=== PATIENT | male | born 1960 | race Caucasian/White ===

== ENCOUNTER 2016-11-18 08:02 | Observation (INO) | payer BC ==
[~2016-11-18] VITALS: Ht 172.7 cm; Wt 104.0 kg
[2016-11-18] MEDS ORDERED: ASPIRIN 81 MG CHEW PO STA (08:22)
[2016-11-18 08:30] LABS: BASO % 0.1 %; BASO ABS # 0.01 K/uL (0-0.2); COMPLETE YES; EOS % 1.5 %; HEMATOCRIT 47.8 % (42-52); IG% 0.3 %; LYMPH % 38.7 %; LYMPH ABS # 2.93 K/uL (1.2-3.4); MEAN CELL VOLUME 89.2 fL (80-100); MEAN CORPUSCULAR HEMOGLOBIN 30.8 pg (25-34); MEAN CORPUSCULAR HGB CONC 34.5 g/dl (32-36); MEAN PLATELET VOLUME 11.1 fL (7.4-10.4); MONO % 8.3 %; NEUT % 51.1 %; PLATELET COUNT 193 K/uL (130-400); RED BLOOD COUNT 5.36 M/uL (4.7-6.1); WHITE BLOOD COUNT 7.57 K/uL (4.8-10.8)
--- NOTE | 2016-11-18 08:37 | EMERGENCY ROOM VISIT NOTE ---
History Report prepared by Larry: Randee Ha Under the Supervision of: Dr. Neha Majano M.D. First contact with patient: 08:11 Chief Complaint: CHEST PAIN Stated Complaint: CHEST PAIN Nursing Triage Summary: Pt c/o left chest pain intermittently x 1 month This morning it woke me up, my heartbeat stabbed me. SOB intermittently, unsure if it's with the pain. Denies pain with deep breath. Just got over a cold a month ago, took antibiotics. Hx Angina. History of Present Illness The patient is a 56 year old male who presents to the Emergency Room with complaints of intermittent left-sided chest pain that started this morning. He states that the pain is becoming more frequent. The patient states that the pain woke him up this morning and he describes the pain as sharp. He states that he experienced the same chest pain 1 month ago. The patient has not noticed any relationship between the pain and sitting up or lying flat. The patient is also experiencing increased sweating, but he adds that he is normally sweaty at baseline. He is also experiencing intermittent shortness of breath that is worse with exertion. He states that he can't catch his breath and denies any pain with breathing. The patient states that he gets fatigued more quickly whenever he works. He denies nausea or lower extremity edema. The patient is also experiencing dizziness and near syncope with coughing. The patient did not take any aspirin today. The patient adds that he had a chest cold 1 month ago and was on antibiotics for it. The patient states that he has never had a NM. The patient states that he smokes 1 cigarette a day, but used to smoke 3 packs a day. He denies frequent exposure to chemicals. The patient's most recent stress test was last year. Source of History: patient Onset: morning Position: chest (left) Quality: sharp Timing: intermittent, worsening Associated Symptoms: + SOB (intermittent), + fatigue (more quickly when working), No nausea Note: increased sweating, dizziness and near syncope with coughing, no lower extremity edema Review of Systems See HPI for pertinent positives & negatives. A total of 10 systems reviewed and were otherwise negative. Past Medical & Surgical Medical Problems: (1) Chest pain (2) Dyslipidemia (3) GERD (gastroesophageal reflux disease) (4) Hypertension (5) Tobacco use disorder Surgical Problems: (1) Status post lumbar laminectomy Family History Cancer Diabetes mellitus Heart disease Hypertension Lung disease Social History Smoking Status: Current Every Day Smoker (1 cigarette a day) Alcohol Use: none Marital Status: Housing Status: lives with significant other Occupation Status: employed Current/Historical Medications Scheduled Atorvastatin (Atorvastatin Calcium), 40 MG PO HS Bupropion Hcl (Wellbutrin Sr), 150 MG PO BID Levothyroxine Sodium (Synthroid), 150 MCG PO QAM Losartan Potassium & Hydrochlo (Losartan Potassium/Hydroc), 1 TAB PO DAILY Metoprolol Tartrate (Lopressor), 25 MG PO BID Omeprazole (Prilosec), 20 MG PO QAM Allergies Coded Allergies: CT Inhibitors (Verified Adverse Reaction, Mild, DRY COUGH, 11/18/16) DRY COUGH NOT THE ANTIBIOTIC No Known Allergies (Verified , 08/15/11) Physical Exam Vital Signs Date Time Temp Pulse Resp B/P (MAP) Pulse Ox O2 Delivery O2 Flow Rate FiO2 11/18/16 11:09 79 18 179/91 99 Room Air 11/18/16 11:00 99 Room Air 11/18/16 10:44 74 18 181/94 99 Room Air 11/18/16 10:10 72 18 208/109 100 Room Air 11/18/16 10:01 76 18 173/105 97 Room Air 11/18/16 09:38 67 20 166/102 99 Room Air 11/18/16 08:19 85 11/18/16 08:08 78 19 207/111 97 Physical Exam Vital signs reviewed. General: Well-appearing male, in no significant distress. HEENT: No scleral icterus, PERRLA, neck supple. Atraumatic. Cardiovascular: Regular rate and rhythm, no extra sounds. Pulmonary: Clear to auscultation bilaterally, normal work of breathing. Abdomen: Soft, nontender, nondistended, positive bowel sounds. Musculoskeletal: Atraumatic, no peripheral edema. Neurologic: Patient awake alert and oriented x 3, full strength in all 4 extremities. Cranial nerves 2 through 12 grossly intact. Skin: Warm, dry, no rash Medical Decision & Procedures ER Provider Diagnostic Interpretation: Radiology results as stated below per my review and radiologist interpretation: CHEST ONE VIEW PORTABLE FINDINGS: No pneumothorax. No pleural effusions. The heart remains enlarged. No focal lung consolidations to suggest pneumonia. No evidence for pulmonary edema. Stable calcified granuloma within the right midlung zone. IMPRESSION: Stable cardiomegaly. Electronically signed by: Tomer Zhou M.D. 11/18/2016 8:36 AM Dictated Date/Time: 11/18/2016 8:35 AM CHEST CTA for PULMONARY ARTERIES FINDINGS: There is a normal caliber thoracic aorta with no evidence for dissection. There is no evidence for pulmonary embolus. No pleural effusions. No pneumothorax. The liver and spleen are unremarkable. No mediastinal or hilar lymphadenopathy. The central airways are patent. Calcified granuloma within the right middle lobe. A 4 mm nodule within the lingula on image 182. No focal lung consolidations to suggest pneumonia. IMPRESSION: 1. No evidence for pulmonary embolus. 2. An indeterminate 4 mm nodule within the lingula. Please refer to the chart below for recommended follow-up . Please refer to below summary of Fleischner criteria recommendations for follow-up of incidental CT nodules (Destiney Louis, Guidelines for management of small pulmonary nodules detected on CT scans: A statement from the Fleischner Society, Radiology 237: [phone].) SOLID NODULES Solitary nodule size: <6 mm * Low risk patients: no follow-up needed * high risk patients: optional CT at 12 months Solitary nodule size: 6-8 mm * Low risk patients: follow-up at 6-12 months, then consider further follow-up at 18-24 months * high risk patients: initial follow-up CT at 6-12 months and then at 18-24 months if no change Solitary nodule size: >8 mm * either low or high risk patients - consider follow-up CT at 3 months, and/or CT-PET, and/or biopsy Multiple nodules size: <6 mm * Low risk patients: no routine follow-up * high risk patients: optional CT at 12 months Multiple nodules size: 6-8 mm * Low risk patients: follow-up at 3-6 months, then consider further follow-up at 18-24 months * high risk patients: follow-up at 3-6 months, then at 18-24 months if no change Multiple nodules size: >8 mm * Low risk patients: follow-up at 3-6 months, then consider further follow-up at 18-24 months * high risk patients: follow-up at 3-6 months, then at 18-24 months if no change Note: newly detected indeterminate nodule in persons 35 years of age or older. * Low risk patients: minimal or absent history of smoking and/or other known risk factors * high risk patients: history of smoking or of other known risk factors (e.g. first degree relative with lung cancer, or exposure to asbestos, radon, uranium) * if a nodule up to 8 mm is partly solid or is ground glass further follow-up is required after 24 months to exclude possible slow growing adenocarcinoma (NATI) SUBSOLID NODULES Solitary pure ground-glass nodule * nodule size <6 mm - no CT follow-up required * nodule size >=6 mm - follow-up CT at 6-12 months, then every 2 years until 5 years Solitary part-solid nodule * nodule size <6 mm - no CT follow-up required * nodule size >=6 mm - follow-up CT at 3-6 months. If unchanged, and solid component remains <6 mm, then annual follow-up for 5 years Multiple subsolid nodules * nodule size <6 mm - follow-up CT at 3-6 months, consider further follow-up at 2 and 4 years if stable * nodule size >=6 mm - follow-up CT at 3-6 months, subsequent management based on the most suspicious nodule(s) Electronically signed by: Tomer Zhou M.D. 11/18/2016 10:22 AM Dictated Date/Time: 11/18/2016 10:15 AM Laboratory Results 11/18/16 08:00 Red Blood Count 5.36, Mean Corpuscular Volume 89.2, Mean Corpuscular Hemoglobin 30.8, Mean Corpuscular Hemoglobin Concent 34.5, Mean Platelet Volume 11.1, Neutrophils (%) (Auto) 51.1, Lymphocytes (%) (Auto) 38.7, Monocytes (%) (Auto) 8.3, Eosinophils (%) (Auto) 1.5, Basophils (%) (Auto) 0.1, Neutrophils # (Auto) 3.87, Lymphocytes # (Auto) 2.93, Monocytes # (Auto) 0.63, Eosinophils # (Auto) 0.11, Basophils # (Auto) 0.01 11/18/16 08:00 Test 11/18/16 08:00 11/18/16 08:27 White Blood Count 7.57 K/uL (4.8-10.8) Red Blood Count 5.36 M/uL (4.7-6.1) Hemoglobin 16.5 g/dL (14.0-18.0) Hematocrit 47.8 % (42-52) Mean Corpuscular Volume 89.2 fL (80-100) Mean Corpuscular Hemoglobin 30.8 pg (25-34) Mean Corpuscular Hemoglobin Concent 34.5 g/dl (32-36) Platelet Count 193 K/uL (130-400) Mean Platelet Volume 11.1 fL (7.4-10.4) Neutrophils (%) (Auto) 51.1 % Lymphocytes (%) (Auto) 38.7 % Monocytes (%) (Auto) 8.3 % Eosinophils (%) (Auto) 1.5 % Basophils (%) (Auto) 0.1 % Neutrophils # (Auto) 3.87 K/uL (1.4-6.5) Lymphocytes # (Auto) 2.93 K/uL (1.2-3.4) Monocytes # (Auto) 0.63 K/uL (0.11-0.59) Eosinophils # (Auto) 0.11 K/uL (0-0.5) Basophils # (Auto) 0.01 K/uL (0-0.2) RDW Standard Deviation 42.5 fL (36.4-46.3) RDW Coefficient of Variation 13.0 % (11.5-14.5) Immature Granulocyte % (Auto) 0.3 % Immature Granulocyte # (Auto) 0.02 K/uL (0.00-0.02) Anion Gap 7.0 mmol/L (3-11) Est Creatinine Clear Calc Drug Dose 102.0 ml/min Estimated GFR () 100.2 Estimated GFR (Non- 86.4 BUN/Creatinine Ratio 10.6 (10-20) Calcium Level 8.0 mg/dl (8.5-10.1) Total Bilirubin 0.3 mg/dl (0.2-1) Direct Bilirubin < 0.1 mg/dl (0-0.2) Aspartate Amino Transf (AST/SGOT) 20 U/L (15-37) Alanine Aminotransferase (ALT/SGPT) 24 U/L (12-78) Alkaline Phosphatase 89 U/L (45-117) Total Creatine Kinase 64 U/L (39-308) Creatine Kinase MB 1.7 ng/ml (0.5-3.6) Creatine Kinase MB Ratio 2.7 (0-3.0) Total Protein 7.1 gm/dl (6.4-8.2) Albumin 3.5 gm/dl (3.4-5.0) Thyroid Stimulating Hormone (TSH) 4.950 uIu/ml (0.300-4.500) Hepatitis C Antibody Screen NEG (NEG) Bedside D-Dimer > 450 ng/mlFEU (0-450) Bedside Troponin I < 0.030 ng/ml (0-0.045) Laboratory results per my review. Medications Administered Medications (Trade) Dose Ordered Sig/Agnieszka Route Start Time Stop Time Status Last Admin Dose Admin Aspirin (Aspirin Chew) 324 mg NOW STAT PO 11/18/16 08:22 11/18/16 08:24 DC 11/18/16 08:37 324 MG Hydralazine HCl (HydrALAZINE INJ) 10 mg NOW STAT IV. 11/18/16 09:40 11/18/16 09:41 DC 11/18/16 09:45 10 MG Hydralazine HCl (HydrALAZINE INJ) 10 mg NOW STAT IV. 11/18/16 10:13 11/18/16 10:14 DC 11/18/16 10:25 10 MG Nitroglycerin (Nitroglycerin 2% Oint) 1 inch [facility] ONCE .ROUTE 11/18/16 10:14 11/18/16 10:15 DC 11/18/16 10:14 1 INCH ECG Indication: chest pain Rate (beats per minute): 83 Rhythm: normal sinus Findings: no acute ischemic change, no ectopy, other (Possible previous anterior infarct) ED Course 816: Past medical records reviewed. The patient was evaluated in room B12. A complete history and physical examination was performed. 0822: Ordered Aspirin 324 mg PO 0940: Ordered Hydralazine HCl 10 mg IV 1013: Ordered Hydralazine HCl 10 mg IV 1014: Ordered Nitroglycerin 1 inch TOP 1107: Upon reevaluation, the patient is resting comfortably. I discussed laboratory and radiographic results with her. She verbalized agreement of the treatment plan. The patient will be evaluated for further management and care. 1125: I reviewed the patient's case with Dr. Mallory Gustafson. He will evaluate the patient for further management. Medical Decision Differential diagnoses includes acute coronary syndrome, pulmonary embolus, aortic dissection, musculoskeletal pain, pneumonia, pleural effusion, pneumothorax, gastritis, peptic ulcer disease. Medication Reconciliation: I attest that I have personally reviewed the patient' s current medication list. Blood Pressure Screening: Patient was found to have an elevated blood pressure and was referred to their primary doctor for recheck and further treatment. This patient was evaluated and appeared to be in no significant distress. IV access was obtained and laboratory work was drawn. Patient was placed on the systems engineer and found to be in normal sinus rhythm. EKG reveals no evidence of acute ischemia. He was given an aspirin to chew. Patient is noted to be markedly hypertensive. His given several doses of IV hydralazine and nitroglycerin trial. Patient's pain had largely subsided. It did seem to wax and wane in the emergency department. Cardiac enzymes are negative. D-dimer is elevated and a CT scan of the chest was performed which is negative. I did inform the patient and his family of the findings. He will be evaluated by the hospitalist service for admission and further management. Consults Time Called: 1109 Consulting Physician: Dr. Mallory Gustafson Returned Call: 1125 I reviewed the patient's case with Dr. Mallory Gustafson. He will evaluate the patient for further management. Impression Primary Impression: Hypertensive urgency Additional Impression: Left sided chest pain Scribe Attestation The scribe's documentation has been prepared under my direction and personally reviewed by me in its entirety. I confirm that the note above accurately reflects all work, treatment, procedures, and medical decision making performed by me. Departure Information Prescriptions Atorvastatin (Atorvastatin Calcium) 40 Mg Tab 40 MG PO HS, #30 TAB 5 Refills Prov: Nate Tejada M.D. 11/19/16 Metoprolol Tartrate (LOPRESSOR) 25 Mg Tab 25 MG PO BID, #60 TAB 5 Refills Prov: Nate Tejada M.D. 11/19/16 Losartan Potassium & Hydrochlo (LOSARTAN POTASSIUM/HYDROC) 1 Tab Tab 1 TAB PO DAILY, #30 TAB 5 Refills 100 / 12.5 mg tablet Prov: Nate Tejada M.D. 11/19/16 Referrals Keshav Garcia M.D. ([facility]) (PCP) Patient Instructions My [facility] Problem Qualifiers
--- NOTE | 2016-11-18 08:37 | DIAGNOSTIC IMAGING REPORT ---
CHEST ONE VIEW PORTABLE HISTORY: Atypical chest pain COMPARISON: Chest 10/04/2005. FINDINGS: No pneumothorax. No pleural effusions. The heart remains enlarged. No focal lung consolidations to suggest pneumonia. No evidence for pulmonary edema. Stable calcified granuloma within the right midlung zone. IMPRESSION: Stable cardiomegaly. Electronically signed by: Tomer Zhou M.D. 11/18/2016 8:36 AM Dictated Date/Time: 11/18/2016 8:35 AM
[2016-11-18] MEDS ORDERED: PRLSR20 PO (08:40)
[2016-11-18] MEDS ORDERED: HYZ/50125 PO (08:40)
[2016-11-18] MEDS ORDERED: ATOR-22 PO (08:40)
[2016-11-18] MEDS ORDERED: SYN150 PO (08:40)
[2016-11-18 08:46] LABS: POINT OF CARE TROPONIN I < 0.030 ng/ml (0-0.045)
[2016-11-18 08:47] LABS: ALT/SGPT 24 U/L (12-78); BLOOD UREA NITROGEN 10 mg/dl (7-18); BUN/CREATININE RATIO 10.6 (10-20); CARBON DIOXIDE 24 mmol/L (21-32); CHLORIDE 109 mmol/L (98-107); CREATININE 0.98 mg/dl (0.60-1.40); GLUCOSE 112 mg/dl (70-99); POTASSIUM 4.2 mmol/L (3.5-5.1); SODIUM 140 mmol/L (136-145)
[2016-11-18 08:58] LABS: ALKALINE PHOSPHATASE 89 U/L (45-117); AST/SGOT 20 U/L (15-37); CKMB/CK RATIO 2.7 (0-3.0)
[2016-11-18] MEDS ORDERED: OPTIRAY 320 IV PRN (09:15)
[2016-11-18] MEDS ORDERED: HydrALAZINE HCL 20 MG/ML VIAL IV. STA ×2 (09:40→10:13)
[2016-11-18] MEDS ORDERED: NITROGLYCERIN OINT 2% 1GM PACKET ONE (10:14)
[2016-11-18] MEDS ORDERED: NITROGLYCERIN OINT 2% 1GM PACKET EXT ONE (10:15)
--- NOTE | 2016-11-18 10:24 | DIAGNOSTIC IMAGING REPORT ---
CHEST CTA for PULMONARY ARTERIES CT DOSE: 616.07 mGy.cm HISTORY: Atypical chest pain. TECHNIQUE: Multiaxial CT images of the chest were performed following the intravenous administration of contrast to evaluate the pulmonary arteries. Maximal intensity projection images were also obtained. COMPARISON STUDY: None. FINDINGS: There is a normal caliber thoracic aorta with no evidence for dissection. There is no evidence for pulmonary embolus. No pleural effusions. No pneumothorax. The liver and spleen are unremarkable. No mediastinal or hilar lymphadenopathy. The central airways are patent. Calcified granuloma within the right middle lobe. A 4 mm nodule within the lingula on image 182. No focal lung consolidations to suggest pneumonia. IMPRESSION: 1. No evidence for pulmonary embolus. 2. An indeterminate 4 mm nodule within the lingula. Please refer to the chart below for recommended follow-up . Please refer to below summary of Fleischner criteria recommendations for follow-up of incidental CT nodules (Destiney Louis, Guidelines for management of small pulmonary nodules detected on CT scans: A statement from the Fleischner Society, Radiology 237: [phone].) SOLID NODULES Solitary nodule size: <6 mm * Low risk patients: no follow-up needed * high risk patients: optional CT at 12 months Solitary nodule size: 6-8 mm * Low risk patients: follow-up at 6-12 months, then consider further follow-up at 18-24 months * high risk patients: initial follow-up CT at 6-12 months and then at 18-24 months if no change Solitary nodule size: >8 mm * either low or high risk patients - consider follow-up CT at 3 months, and/or CT-PET, and/or biopsy Multiple nodules size: <6 mm * Low risk patients: no routine follow-up * high risk patients: optional CT at 12 months Multiple nodules size: 6-8 mm * Low risk patients: follow-up at 3-6 months, then consider further follow-up at 18-24 months * high risk patients: follow-up at 3-6 months, then at 18-24 months if no change Multiple nodules size: >8 mm * Low risk patients: follow-up at 3-6 months, then consider further follow-up at 18-24 months * high risk patients: follow-up at 3-6 months, then at 18-24 months if no change Note: newly detected indeterminate nodule in persons 35 years of age or older. * Low risk patients: minimal or absent history of smoking and/or other known risk factors * high risk patients: history of smoking or of other known risk factors (e.g. first degree relative with lung cancer, or exposure to asbestos, radon, uranium) * if a nodule up to 8 mm is partly solid or is ground glass further follow-up is required after 24 months to exclude possible slow growing adenocarcinoma (NATI) SUBSOLID NODULES Solitary pure ground-glass nodule * nodule size <6 mm - no CT follow-up required * nodule size >=6 mm - follow-up CT at 6-12 months, then every 2 years until 5 years Solitary part-solid nodule * nodule size <6 mm - no CT follow-up required * nodule size >=6 mm - follow-up CT at 3-6 months. If unchanged, and solid component remains <6 mm, then annual follow-up for 5 years Multiple subsolid nodules * nodule size <6 mm - follow-up CT at 3-6 months, consider further follow-up at 2 and 4 years if stable * nodule size >=6 mm - follow-up CT at 3-6 months, subsequent management based on the most suspicious nodule(s) Electronically signed by: Tomer Zhou M.D. 11/18/2016 10:22 AM Dictated Date/Time: 11/18/2016 10:15 AM
[2016-11-18 11:00] VITALS: O2SAT 99; Ht 172.7 cm; Wt 104.0 kg
[2016-11-18] MEDS ORDERED: ONDANSETRON INJ 2 MG/ML 2 ML VIAL IV PRN (11:45)
[2016-11-18] MEDS ORDERED: NITROGLYCERIN 0.4 MG SL PER TAB CHARGE SL PRN (11:45)
[2016-11-18] MEDS ORDERED: MoRPHine SULFATE 2 MG/ML CARP IV PRN (11:45)
[2016-11-18] MEDS ORDERED: ACETAMINOPHEN 325 MG TAB PO PRN (11:45)
[2016-11-18 12:11] VITALS: O2SAT 97
[2016-11-18] MEDS ORDERED: BUPR150T7 PO (12:49)
--- NOTE | 2016-11-18 12:54 | History and Physical ---
History & Physical Date & Time of Service: Nov 18, 2016 at 11:40 . Chief Complaint: chest pain . Primary Care Physician: Keshav Garcia M.D.(LOUISA) . History of Present Illness Source: patient, family, clinic records, hospital records 56 [address]O male followed by Dr. Garcia. History of hypertension, dyslipidemia, smoking. Experienced transient left sided sharp chest pain 1 week ago while driving vehicle. Awakened from sleep this morning with similar pain, but more severe and more prolonged. CP described as sharp / stabbing left anterior chest pain. Intermittent. Nonradiating. Somewhat worse with deep inspiration. Associated with SOB, but no diaphoresis, nausea, vomiting. Did not take any analgesics or NTG at home. 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 Has dyspnea on exertion which he attributes to smoking. No chest pain / pressure with exertion. Mother has history of valvular heart disease, but apparently no significant ischemic heart disease. . Past Medical/Surgical History Chronic and Resolved Medical Problems: (1) Dyslipidemia Status: Chronic (2) GERD (gastroesophageal reflux disease) Status: Chronic (3) Hypertension Status: Chronic (4) Tobacco use disorder Status: Chronic Surgical Problems: (1) Status post lumbar laminectomy Status: Chronic . Family History FATHER Lung cancer MOTHER Heart disease (valvular heart disease) GRANDFATHER Diabetes mellitus Social History Smoking Status: Current Every Day Smoker (3 PPD) Alcohol Use: none Marital Status: Occupational Status: employed Immunizations History of Influenza Vaccine: No History of Tetanus Vaccine?: Yes History of Pneumococcal: No History of Hepatitis B Vaccine: Yes Multi-Drug Resistant Organisms History of MDRO: No Allergies Coded Allergies: CT Inhibitors (Verified Adverse Reaction, Mild, DRY COUGH, 11/18/16) DRY COUGH NOT THE ANTIBIOTIC No Known Allergies (Verified , 08/15/11) Home Medications Scheduled Atorvastatin (Lipitor), 20 MG PO HS Bupropion Hcl (Wellbutrin Sr), 150 MG PO BID Hctz/Losartan (Hyzaar 12.5MG/50MG), 1 TAB PO QAM Levothyroxine Sodium (Synthroid), 150 MCG PO QAM Omeprazole (Prilosec), 20 MG PO QAM Review of Systems Constitutional: No fever, No weight loss Eyes: No worsening of vision, No eye pain ENT: No nasal symptoms, No sore throat Respiratory: + cough (treated, improved), + dyspnea on exertion Cardiovascular: + problem reported (as noted above in HPI) Abdomen: No pain, No nausea, No vomiting, No diarrhea, No GI bleeding Musculoskeletal: No joint pain, No muscle pain Genitourinary - Male: No hematuria, No dysuria Endocrine: No excessive thirst, No excessive urination Hematologic / Lymphatic: No abnormal bleeding/bruising, No swollen lymph nodes Integumentary: No new/changing skin lesions Physical Exam Vital Signs Date Time Temp Pulse Resp B/P (MAP) Pulse Ox O2 Delivery O2 Flow Rate FiO2 11/18/16 12:11 85 18 189/95 97 Room Air 11/18/16 11:09 79 18 179/91 99 Room Air 11/18/16 11:00 99 Room Air 11/18/16 10:44 74 18 181/94 99 Room Air 11/18/16 10:10 72 18 208/109 100 Room Air 11/18/16 10:01 76 18 173/105 97 Room Air 11/18/16 09:38 67 20 166/102 99 Room Air 11/18/16 08:19 85 11/18/16 08:08 78 19 207/111 97 General Appearance: WD/WN, no apparent distress Head: normocephalic, atraumatic Eyes: PERRL, EOMI, sclerae normal, + pertinent finding (conjunctivae pink) ENT: hearing grossly normal, pharynx normal, + pertinent finding (upper dentures) Neck: supple, no adenopathy, thyroid normal, trachea midline Respiratory/Chest: no respiratory distress, no accessory muscle use, + wheezing (diffuse mild) Cardiovascular: regular rate, rhythm, no edema, no JVD, no murmur, + gallop/S4 , + pertinent finding (carotid pulses 2/2 bilat; radial pulses symmetric; right DP diminished, other pedal pulses intact; capillary refill toes 1-2 sec) Abdomen/GI: normal bowel sounds, non tender, soft, no organomegaly, no pulsatile mass Extremities/Musculoskelatal: normal inspection, no calf tenderness Neurologic/Psych: wood cutter II-XII nml as tested (PERRL, EOMI, no facial palsy, no dysarthria), no motor/sensory deficits (motor strength upper and lower extremities intact), alert, normal mood/affect, normal reflexes (plantar reflexes downgoing), oriented x 3 Skin: normal color, warm/dry, no rash Lymphatic: no adenopathy (cervical) Diagnostics Laboratory Results Results Past 24 Hours Test 11/18/16 08:00 11/18/16 08:27 Range/Units White Blood Count 7.57 4.8-10.8 K/uL Red Blood Count 5.36 4.7-6.1 M/uL Hemoglobin 16.5 14.0-18.0 g/dL Hematocrit 47.8 42-52 % Mean Corpuscular Volume 89.2 80-100 fL Mean Corpuscular Hemoglobin 30.8 25-34 pg Mean Corpuscular Hemoglobin Concent 34.5 32-36 g/dl Platelet Count 193 130-400 K/uL Mean Platelet Volume 11.1 7.4-10.4 fL Neutrophils (%) (Auto) 51.1 % Lymphocytes (%) (Auto) 38.7 % Monocytes (%) (Auto) 8.3 % Eosinophils (%) (Auto) 1.5 % Basophils (%) (Auto) 0.1 % Neutrophils # (Auto) 3.87 1.4-6.5 K/uL Lymphocytes # (Auto) 2.93 1.2-3.4 K/uL Monocytes # (Auto) 0.63 0.11-0.59 K/uL Eosinophils # (Auto) 0.11 0-0.5 K/uL Basophils # (Auto) 0.01 0-0.2 K/uL RDW Standard Deviation 42.5 36.4-46.3 fL RDW Coefficient of Variation 13.0 11.5-14.5 % Immature Granulocyte % (Auto) 0.3 % Immature Granulocyte # (Auto) 0.02 0.00-0.02 K/uL Sodium Level 140 136-145 mmol/L Potassium Level 4.2 3.5-5.1 mmol/L Chloride Level 109 98-107 mmol/L Carbon Dioxide Level 24 21-32 mmol/L Anion Gap 7.0 3-11 mmol/L Blood Urea Nitrogen 10 7-18 mg/dl Creatinine 0.98 0.60-1.40 mg/dl Est Creatinine Clear Calc Drug Dose 102.0 ml/min Estimated GFR () 100.2 Estimated GFR (Non- 86.4 BUN/Creatinine Ratio 10.6 10-20 Random Glucose 112 70-99 mg/dl Calcium Level 8.0 8.5-10.1 mg/dl Total Bilirubin 0.3 0.2-1 mg/dl Direct Bilirubin < 0.1 0-0.2 mg/dl Aspartate Amino Transf (AST/SGOT) 20 15-37 U/L Alanine Aminotransferase (ALT/SGPT) 24 12-78 U/L Alkaline Phosphatase 89 45-117 U/L Total Creatine Kinase 64 39-308 U/L Creatine Kinase MB 1.7 0.5-3.6 ng/ml Creatine Kinase MB Ratio 2.7 0-3.0 Total Protein 7.1 6.4-8.2 gm/dl Albumin 3.5 3.4-5.0 gm/dl Thyroid Stimulating Hormone (TSH) 4.950 0.300-4.500 uIu/ml Bedside D-Dimer > 450 0-450 ng/mlFEU Bedside Troponin I < 0.030 0-0.045 ng/ml Diagnostic Radiology CHEST ONE VIEW PORTABLE HISTORY: Atypical chest pain COMPARISON: Chest 10/04/2005. FINDINGS: No pneumothorax. No pleural effusions. The heart remains enlarged. No focal lung consolidations to suggest pneumonia. No evidence for pulmonary edema. Stable calcified granuloma within the right midlung zone. IMPRESSION: Stable cardiomegaly. Electronically signed by: Tomer Zhou M.D. 11/18/2016 8:36 AM CHEST CTA for PULMONARY ARTERIES CT DOSE: 616.07 mGy.cm HISTORY: Atypical chest pain. TECHNIQUE: Multiaxial CT images of the chest were performed following the intravenous administration of contrast to evaluate the pulmonary arteries. Maximal intensity projection images were also obtained. COMPARISON STUDY: None. FINDINGS: There is a normal caliber thoracic aorta with no evidence for dissection. There is no evidence for pulmonary embolus. No pleural effusions. No pneumothorax. The liver and spleen are unremarkable. No mediastinal or hilar lymphadenopathy. The central airways are patent. Calcified granuloma within the right middle lobe. A 4 mm nodule within the lingula on image 182. No focal lung consolidations to suggest pneumonia. IMPRESSION: 1. No evidence for pulmonary embolus. 2. An indeterminate 4 mm nodule within the lingula. Please refer to the chart below for recommended follow-up . Please refer to below summary of Fleischner criteria recommendations for follow-up of incidental CT nodules (H Heriberto, Guidelines for management of small pulmonary nodules detected on CT scans: A statement from the Fleischner Society, Radiology 237: [phone].) . EKG EKG performed at 08:09 reviewed and demonstrated NSR at 83 / minute, no acute ST or T-wave abnormalities. . Impression Assessment and Plan CHEST PAIN Chest pain as described; multiple risk factors for ischemic heart disease. EKG shows NSR, no acute changes. First set of cardiac markers negative in ED. Pulmonary embolism ruled out by CTA. No apparent aortic dissection per CT. Management of hypertension, lipids, and smoking as discussed below. Check serial cardiac markers. Check echo. Consult Cardiology. ELEVATED D-DIMER CTA chest negative for PE. Check venous duplex lower extremities. HYPERTENSIVE URGENCY BP 207/111 upon presentation to ED. Received NTG ointment and IV hydralazine with improvement. Continue losartan / HCTZ. Increase daily losartan dose to 100 mg daily. Add metoprolol tartrate 25 mg BID. Follow and titrate Rx. DYSPNEA ON EXERTION Probably has obstructive lung disease. Outpatient PFT's recommended. PULMONARY NODULE CT chest demonstrated 4 mm lingular nodule. Repeat CT in 12 months recommended given smoking history. GERD Continue PPI. DYSLIPIDEMIA Check lipid profile. Continue atorvastatin. SMOKING Smokes 3 PPD. Continue bupropion. Smoking cessation counseling. VTE PROPHYLAXIS Low risk for VTE. SQ enoxaparin. Ambulatin. DISPOSITION Expected discharge to home. Family Medicine follow-up with Dr. Garcia. . Advanced Directives Existing Living Will: No Existing Power of Student Services Coordinator: No VTE Prophylaxis VTE Risk Assessment Done? Y/N: Yes Risk Level: Low Given or contraindicated: Enoxaparin (Lovenox)SQ
[2016-11-18 13:00] VITALS: BP 158/99; PULSE 95; TEMP 36.4; O2SAT 97
[2016-11-18] MEDS ORDERED: IV FLUIDS COMPLETED PRN (13:00)
[2016-11-18] MEDS ORDERED: CLONIDINE HCL 0.1 MG TAB PO PRN (13:00)
[2016-11-18] MEDS ORDERED: METOPROLOL TARTRATE 25 MG TAB PO ONE (13:30)
[2016-11-18] MEDS ORDERED: LOSARTAN POTASSIUM 50 MG TAB PO ONE (13:30)
[2016-11-18] MEDS ORDERED: PERFLUTREN LIPID MICROSPHERE (DEFINITY) IV ONE (14:23)
[2016-11-18 14:58] LABS: INR 0.9 (0.9-1.1)
[2016-11-18 15:09] VITALS: BP 135/83; PULSE 93; TEMP 36.5; O2SAT 97
--- NOTE | 2016-11-18 17:13 | DIAGNOSTIC IMAGING REPORT ---
BILATERAL LOWER EXTREMITY VENOUS DOPPLER HISTORY: elevated D-dimer COMPARISON STUDY: None. FINDINGS: There is normal compressibility, flow, and augmentation within the bilateral lower extremity deep venous systems. IMPRESSION: No DVT within the right or left lower extremity. Electronically signed by: Tomer Zhou M.D. 11/18/2016 5:12 PM Dictated Date/Time: 11/18/2016 5:12 PM
[2016-11-18 19:30] VITALS: BP 120/75; PULSE 75; TEMP 36.7; O2SAT 96
[2016-11-18] MEDS ORDERED: ENOXAPARIN 40 MG/0.4 ML SYR SC SCH (21:00)
[2016-11-18] MEDS ORDERED: ATORVASTATIN 20 MG TAB PO SCH (21:00)
[2016-11-18] MEDS: METOPROLOL TARTRATE 25 MG TAB PO SCH (21:09)
[2016-11-18] MEDS: BuPROPion SR 150 MG TABCR PO SCH (21:09)
[2016-11-18 23:27] VITALS: BP 121/72; PULSE 67; TEMP 36.8; O2SAT 96
[2016-11-19 04:00] VITALS: BP 127/78; PULSE 67; TEMP 36.8; O2SAT 99
[2016-11-19] MEDS ORDERED: LEVOTHYROXINE 150 MCG TAB PO SCH (06:00)
[2016-11-19 06:20] LABS: CHOLESTEROL 197 mg/dl (0-200); CHOLESTEROL/HDL RATIO 6.2; HDL CHOLESTEROL 32 mg/dl; LDL CHOLESTEROL CALCULATED 123 mg/dl; TRIGLYCERIDES 211 mg/dl (0-150); VERY LOW DENSITY LIPOPROT CALC 42 mg/dl
[2016-11-19 08:27] VITALS: BP 116/72; PULSE 76; TEMP 36.9; O2SAT 95
--- NOTE | 2016-11-19 08:27 | ECHOCARDIOGRAM REPORT ---
*NOTICE TO RECEIVING DEMOCRAT AGENCY This information is strictly Confidential and protected under [place] law. [place] law prohibits you from making any further disclosure of this information unless further disclosure is expressly permitted by the written consent of the person to whom it pertains or is authorized by law. A general authorization for the release of medical or other information is not sufficient for this purpose. Hospital accepts no responsibility if the information is made available to any other person, INCLUDING THE PATIENT. Interpretation Summary * Name: ISIDRO JORDAN Study Date: 11/18/2016 02:00 PM BP: 158/99 mmHg * Patient Location: C.2T\S\E218\S\1 HR: 100 * : 1960 (M/d/yyyy) Gender: Male Height: 68 in * Age: 56 yrs Ethnicity: CA Weight: 240 lb * Ordering Physician: Nate Tejada * Referring Physician: Self, Referred * Performed By: Danay Leung RDCS * * Reason For Study: CHEST PAIN * BSA: 2.2 m2 * -- Conclusions -- * Small LV chamber size with mild concentric LVH. * Hyperdynamic LV systolic function without regional wall motion abnormality, EF >70%. * Grade I diastolic dysfunction. * No significant valvular pathology. Procedure Details * A contrast injection of Definity was performed to improve assessment of LV function. * Contrast was injected into an intravenous site in the right arm. * One vial of Definity ultrasound contrast was diluted in normal saline to a total volume of 10 ml. A total of '2' ml of solution was administered during imaging. * Lot # [id number] of Definity utilized for procedure. * Expiration date jan 18. * The attending nurse who injected the contrast agent was ARJUN maciel. Left Ventricle * The left ventricular cavity is small. * There is mild concentric left ventricular hypertrophy. * Ejection Fraction = >70 %. * The left ventricle is hyperdynamic. * The left ventricular wall motion is normal. Right Ventricle * The right ventricular cavity size is normal (basal dimension <4.2 cm in right ventricular apical 4-chamber view). * The right ventricular systolic function is normal as assessed by tricuspid annular plane systolic excursion (TAPSE) (normal >1.5 cm). Atria * The left atrial size is normal. * Right atrial size is normal. * No ASD detected; PFO is not assessed. Mitral Valve * The mitral valve is normal in structure and function. Tricuspid Valve * The tricuspid valve is normal in structure and function. Aortic Valve * The aortic valve is normal in structure and function. Pulmonic Valve * The pulmonary valve is not well seen, but the Doppler examination is normal without significant regurgitation or stenosis. Great Vessels * The aortic root is not well visualized. Pericardium/Pleural * There is no pericardial effusion. Left Ventricular Diastolic Function * Grade I diastolic dysfunction, (abnormal relaxation pattern). MMode 2D Measurements and Calculations IVSd 1.3 cm IVSs 2.1 cm LVIDd 4.5 cm LVIDs 2.1 cm LVPWd 1.2 cm LVPWs 2.0 cm IVS/LVPW 1.1 FS 54.0 % EDV(Teich) 92.3 ml ESV(Teich) 13.8 ml EF(Teich) 85.0 % EDV(cubed) 91.0 ml ESV(cubed) 8.8 ml EF(cubed) 90.3 % % IVS thick 62.6 % % LVPW thick 67.7 % LV mass(C)d 206.8 grams LV mass(C)dI 93.6 grams/m\S\2 LV mass(C)s 186.8 grams LV mass(C)sI 84.6 grams/m\S\2 SV(Teich) 78.5 ml SI(Teich) 35.5 ml/m\S\2 SV(cubed) 82.1 ml SI(cubed) 37.2 ml/m\S\2 LA dimension 3.0 cm LVAd ap4 27.4 cm\S\2 LVLd ap4 8.0 cm EDV(MOD-sp4) 77.4 ml EDV(sp4-el) 79.7 ml LVAs ap4 11.2 cm\S\2 LVLs ap4 5.4 cm ESV(MOD-sp4) 19.3 ml ESV(sp4-el) 19.6 ml EF(MOD-sp4) 75.1 % EF(sp4-el) 75.4 % LVAd ap2 24.8 cm\S\2 LVLd ap2 7.3 cm EDV(MOD-sp2) 68.1 ml EDV(sp2-el) 71.6 ml LVAs ap2 11.7 cm\S\2 LVLs ap2 6.8 cm ESV(MOD-sp2) 16.6 ml ESV(sp2-el) 17.1 ml EF(MOD-sp2) 75.6 % EF(sp2-el) 76.2 % LVLd %diff -9.97 % EDV(MOD-bp) 76.8 ml LVLs %diff 20.0 % ESV(MOD-bp) 19.8 ml EF(MOD-bp) 74.2 % SV(MOD-sp4) 58.2 ml SI(MOD-sp4) 26.3 ml/m\S\2 SV(MOD-sp2) 51.5 ml SI(MOD-sp2) 23.3 ml/m\S\2 SV(MOD-bp) 57.0 ml SI(MOD-bp) 25.8 ml/m\S\2 SV(sp4-el) 60.1 ml SI(sp4-el) 27.2 ml/m\S\2 SV(sp2-el) 54.5 ml SI(sp2-el) 24.7 ml/m\S\2 Doppler Measurements and Calculations MV E max jun 74.4 cm/sec MV A max jun 112.7 cm/sec MV E/A 0.66 MV dec time 0.25 sec Ao V2 max 145.2 cm/sec Ao max PG 8.4 mmHg Ao max PG (full) 0.16 mmHg LV V1 max PG 8.3 mmHg LV V1 max 143.9 cm/sec
[2016-11-19] MEDS ORDERED: ASPIRIN 81 MG CHEW PO SCH (09:00)
[2016-11-19] MEDS ORDERED: PANTOprazole SOD 40 MG TAB PO SCH (09:00)
[2016-11-19] MEDS ORDERED: LOSARTAN POTASSIUM 50 MG TAB PO SCH (09:00)
[2016-11-19] MEDS ORDERED: LOSARTAN/HCTZ 50-12.5 EA TAB PO SCH (09:00)
--- NOTE | 2016-11-19 09:50 | CARDIOLOGY CONSULTATION ---
DATE OF CONSULTATION: 11/19/2016 The patient seen and examined. Chart, medications, telemetry reviewed. REFERRING: Dr. Tejada. PRIMARY CARE PHYSICIAN: Dr. Marvin Garcia. INDICATION: Chest pain. HISTORY OF PRESENT ILLNESS: The patient is a 56-year-old male. His underlying history is notable for hypertension, low HDL dyslipidemia, chronic tobacco use. The patient is referred now after being hospitalized on 11/18/2016 after waking from sleep with sharp jabbing pain across left anterior chest. Symptoms waxed and waned throughout that morning, then reoccurred later in the day, once again sharp jabbing pain. He presented to the Emergency Room where initial evaluation revealed normal EKGs and normal cardiac enzymes. CT scan of the chest due to elevated D-dimer demonstrated no pulmonary embolus or acute pathology other than a small nodule. He is referred now for further evaluation. Of note, on patient presentation, he was markedly hypertensive. He notes blood pressures have been running high at home as well as during office visits with primary care physician, has been taking medications as instructed. Notes no fevers, chills, sweats, cough, hoarseness, wheeze or hemoptysis. Weight is down approximately 15-20 pounds which he attributes to increased activity over the summer months. Notes no history of TIA or stroke. Notes no headache or visual changes. Notes no melena, hematochezia, dysuria or hematuria. Appetite has been good. He notes no overt sleep disruption. He works construction with physical job. He does smoke 3 packs of cigarettes per day. ALLERGIES: NOTED TO BE CT INHIBITORS WHICH CAUSE COUGH. MEDICATIONS PRIOR TO HOSPITALIZATION: Atorvastatin 20 mg p.o. daily, Wellbutrin 150 mg b.i.d., hydrochlorothiazide/losartan 12.5/50 mg p.o. q. day, Synthroid 150 mcg p.o. q. day, Prilosec 20 mg p.o. q. day. PAST SURGICAL HISTORY: Notable for back surgeries x3. FAMILY HISTORY: Notable for mother with history of endocarditis and valvular issues. SOCIAL HISTORY: The patient resides in [place]. He works construction. He is a 0-gtwk-nwc-day smoker. Uses no significant alcoholic beverages. PHYSICAL EXAMINATION: VITAL SIGNS: Heart rate this morning is 76, blood pressure is 116/72 and equal in both arms. HEENT: Normocephalic, atraumatic. Nares without discharge. Throat is clear. NECK: Supple without thyromegaly, lymphadenopathy, JVD or bruit. LUNGS: Clear with diminished breath sounds. CARDIOVASCULAR: Regular. There is no audible murmur, gallop or rub. ABDOMEN: Soft, nontender, moderately obese. EXTREMITIES: Without cyanosis or clubbing. There is no palpable cord or Homans sign. There is no edema. Palpable pulses are 2+/4 dorsalis pedis and posterior tibialis and femoral. There are no audible abdominal or femoral bruits. NEUROLOGIC: The patient is answering questions appropriately. LABORATORY DATA: White cell count 7.5, hemoglobin 16.5. Sodium is 140, potassium is 4.2, chloride is 109, bicarbonate is 24, BUN is 10, creatinine is 0.98, calcium is 8.0. Troponin on serial testing x3 is less than 0.015. Cholesterol was 197 with an LDL 123 and HDL 32. TSH is mildly elevated at 4.95. EKG reveals normal tracings on serial testing x2. Echocardiogram this morning demonstrates hyperdynamic LV function, EF greater than 70% with mild left ventricular hypertrophy, no valvular structure abnormalities. IMPRESSION: A 56-year-old male admitted with sharp chest pain, no signs of acute coronary syndrome by EKG and cardiac enzymes. Notes symptoms have been recurrent. Blood pressures have been running high. Hypertensive urgency may account for symptoms given strenuous job activities and risk factors of tobacco, low HDL dyslipidemia, hypertension. We will refer for stress echocardiography this morning. Would continue current medications as prescribed as they appear to be manifesting good control of blood pressure. Strongly urge tobacco cessation.
[2016-11-19] MEDS ORDERED: PERFLUTREN LIPID MICROSPHERE (DEFINITY) IV ONE (11:12)
[2016-11-19 11:43] VITALS: BP 142/63; PULSE 74; TEMP 36.7; O2SAT 96
--- NOTE | 2016-11-19 11:52 | EXERCISE STRESS ECHO ---
*NOTICE TO RECEIVING GREEN [employer]Y AGENCY This information is strictly Confidential and protected under [place] law. [place] law prohibits you from making any further disclosure of this information unless further disclosure is expressly permitted by the written consent of the person to whom it pertains or is authorized by law. A general authorization for the release of medical or other information is not sufficient for this purpose. Hospital accepts no responsibility if the information is made available to any other person, INCLUDING THE PATIENT. Interpretation Summary * Name: ISIDRO JORDAN Study Date: 11/19/2016 09:49 AM BP: 129/74 mmHg * Patient Location: .2T\S\E218\S\1 HR: 74 * : 1960 (M/d/yyyy) Gender: Male Height: 68 in * Age: 56 yrs Ethnicity: [place] Weight: 229 lb * Ordering Physician: Stefan Tomas * Referring Physician: Self, Referred * Performed By: Any Benz RDCS * * Reason For Study: Chest pain * BSA: 2.2 m2 * The stress echocardiogram is negative for inducible ischemia. * The stress ECG response was normal * _ workload achieved. * Stress wall motion was normal. * The left ventricular ejection fraction increases normally with stress. The left ventricular end-systolic cavity size reduces post-stress (normal response). The left ventricular wall motion with stress is normal. Procedure Details * ECHOEX, CPT #54057 * A contrast injection of Definity was performed to improve assessment of LV function. * Contrast was injected into an intravenous site in the right arm. * One vial of Definity ultrasound contrast was diluted in normal saline to a total volume of 10 ml. A total of '5' ml of solution was administered during imaging. * Lot # [id number] of Definity utilized for procedure. * Expiration date JAN 18. * The attending nurse who injected the contrast agent was Jacklyn Duque RN. Left Ventricle * The left ventricle is normal in size. * There is mild concentric left ventricular hypertrophy. * Left ventricular systolic function is normal. * Ejection Fraction = 60-65%. * Resting wall motion: Normal. Stress wall motion: Appropriate increase in Left ventricular systolic function and decrease in cavity size. No stress induced segmental wall motion abnormalities. Stress Parameters * Normal baseline electrocardiogram. * The stress ECG response was normal * The stress portion of this study was personally supervised by the undersigned interpreting physician. * Rest heart rate was '74' BPM. * Rest blood pressure was '129/74' * Maximum heart rate achieved was 137 bpm. * Maximum heart rate was 83 % of maximum age-predicted heart rate. * Maximum blood pressure was '228/62' * Total exercise time was '6:31' * Maximum exercise MET level achieved was '7.70' METS * Maximum treadmill speed was '3.40' miles per hour. * Maximum treadmill elevation was '14.00'% grade. * Exercise was terminated due to 'patient fatigue' Left Ventricular Findings with Stress * The study was technically excellent with all images being of optimal quality.
--- NOTE | 2016-11-19 12:26 | CARDIOLOGY CONSULTATION ---
DATE OF CONSULTATION: 11/19/2016 ADDENDUM The patient was referred and underwent stress echocardiography this morning, exercising for 6 minutes and 30 seconds on a Evan protocol without evidence of stress-induced ischemia with normal EKG and echocardiographic response with a technically excellent study. The patient achieved 83% age predicted maximum heart rate. Estimated met level 7.7 mets. Peak blood pressure was 228/62. IMPRESSION: Overall, findings are negative for stress-induced ischemia. Current complaints appear to be hypertensive urgency mediated. Would continue current medications on hospital discharge with close clinical up with primary care physician, managing cardiac risk factors including hypertension, hyperlipidemia, strongly urge tobacco cessation.
[2016-11-19] MEDS: BuPROPion SR 150 MG TABCR PO SCH (12:30)
[2016-11-19] MEDS: METOPROLOL TARTRATE 25 MG TAB PO SCH (12:31)
--- NOTE | 2016-11-19 13:30 | Progress Note ---
Medicine Progress Note Date & Time of Visit: Nov 19, 2016 at 13:30 . Subjective Feels better. No further chest pain. No shortness of breath. Blood pressures under better control. . Objective Last 8 Hrs Date Time Temp Pulse Resp B/P (MAP) Pulse Ox O2 Delivery O2 Flow Rate FiO2 11/19/16 11:43 36.7 74 18 142/63 (89) 96 11/19/16 08:27 36.9 76 18 116/72 (87) 95 11/19/16 08:05 Room Air Physical Exam: General- no distress Neck- no JVD Lungs- clear Heart- regular, no gallop Abdomen- normal bowel sounds, soft, nontender Extremities- no pretibial edema or calf tenderness Neuro- alert, oriented . Laboratory Results: Last 24 Hours Test 11/18/16 14:21 11/18/16 19:52 11/19/16 05:16 Prothrombin Time 10.0 SECONDS Prothromb Time International Ratio 0.9 Troponin I < 0.015 ng/ml < 0.015 ng/ml < 0.015 ng/ml Triglycerides Level 211 mg/dl Cholesterol Level 197 mg/dl HDL Cholesterol 32 mg/dl LDL Cholesterol, Calculated 123 mg/dl VLDL Cholesterol, Calculated 42 mg/dl Cholesterol/HDL Ratio 6.2 Other Studies: EKG performed at 06:21 reviewed and demonstrated NSR at 63 / minute, no acute changes. . Assessment & Plan CHEST PAIN Presented to ED with sharp left-sided chest pain at rest; multiple risk factors for ischemic heart disease. EKG showed NSR, no acute changes. Cardiac markers negative x 3. Pulmonary embolism ruled out by CTA. No apparent aortic dissection per CT. Cardiology consulted. Echo showed mild LVH, normal LV wall motion and systolic function. No stress-induced ischemia per stress echo. CP felt to be secondary to hypertensive urgency. Management of hypertension, lipids, and smoking as discussed below. ELEVATED D-DIMER CTA chest negative for PE. Venous duplex lower extremities negative for DVT. HYPERTENSIVE URGENCY BP 207/111 upon presentation to ED. Received NTG ointment and IV hydralazine with improvement. Continue losartan / HCTZ. Increase daily losartan dose to 100 mg daily. Added metoprolol tartrate 25 mg BID. BP's improved- 116/72, 142/63 day of discharge. Discharge on Hyzaar 100/12.5 + metoprolol tartrate 25 BID. Follow and titrate Rx. DYSPNEA ON EXERTION Probably has obstructive lung disease. Outpatient PFT's recommended. PULMONARY NODULE CT chest demonstrated 4 mm lingular nodule. Repeat CT in 12 months recommended given smoking history. GERD Continue PPI. DYSLIPIDEMIA LDL-c 123. Increase atorvastatin to 40 mg HS. SMOKING Smokes 3 PPD. Continue bupropion. Smoking cessation counseling. VTE PROPHYLAXIS Low risk for VTE. SQ enoxaparin ordered, but pt refused. Ambulating. DISPOSITION Discharge to home. Family Medicine follow-up with Dr. Garcia. . Consultants: Cardiology with Dr. Tomas. . Procedures: cardiac monitoring IV meds CTA chest venous duplex lower extremities rest echo treadmill stress echo . Current Inpatient Medications: Current Inpatient Medications Medications (Trade) Dose Ordered Sig/Agnieszka Route Start Time Stop Time Status Last Admin Dose Admin Ioversol (Optiray 320) 111 ml UD PRN IV 11/18/16 09:15 11/22/16 09:14 Enoxaparin Sodium (Lovenox Inj) 40 mg HS SC 11/18/16 21:00 12/18/16 20:59 Acetaminophen (Tylenol Tab) 650 mg Q4H PRN PO 11/18/16 11:45 12/18/16 11:44 Ondansetron HCl (Zofran Inj) 4 mg Q6H PRN IV 11/18/16 11:45 12/18/16 11:44 Nitroglycerin (Nitrostat Tab) 0.4 mg UD PRN SL 11/18/16 11:45 12/18/16 11:44 Morphine Sulfate (MoRPHine SULFATE INJ) 2 mg Q30M PRN IV 11/18/16 11:45 12/02/16 11:44 Atorvastatin Calcium (Lipitor Tab) 20 mg HS PO 11/18/16 21:00 12/18/16 20:59 11/18/16 21:09 20 MG Bupropion HCl (Wellbutrin-Sr Tab) 150 mg BID PO 11/18/16 21:00 12/18/16 20:59 11/19/16 12:30 150 MG HCTZ/Losartan Potassium (Hyzaar 50-12.5 Tab) 1 tab QAM PO 11/19/16 09:00 12/19/16 08:59 11/19/16 12:31 1 TAB Levothyroxine Sodium (Synthroid Tab) 150 mcg DAILYBB PO 11/19/16 06:00 12/19/16 05:59 11/19/16 06:38 150 MCG Pantoprazole Sodium (Protonix Tab) 40 mg QAM PO 11/19/16 09:00 12/19/16 08:59 11/19/16 12:31 40 MG Metoprolol Tartrate (Lopressor Tab) 25 mg BID PO 11/18/16 21:00 12/18/16 20:59 11/19/16 12:31 25 MG Clonidine HCl (Catapres Tab) 0.1 mg Q4H PRN PO 11/18/16 13:00 12/18/16 12:59 Losartan Potassium (coZAAR TAB) 50 mg QAM PO 11/19/16 09:00 12/19/16 08:59 11/19/16 12:31 50 MG Miscellaneous (Iv Fluids Completed) 1 ea PRN PRN N/A 11/18/16 13:00 11/18/17 12:59 Aspirin (Aspirin Chew) 81 mg DAILY PO 11/19/16 09:00 12/19/16 08:59 11/19/16 12:30 81 MG
[2016-11-19] MEDS ORDERED: LOSA50TA36 PO (13:40)
[2016-11-19] MEDS ORDERED: LPR25 PO (13:40)
[2016-11-19] MEDS ORDERED: LPT40 PO (13:42)
--- NOTE | 2016-11-19 13:47 | Discharge Instructions ---
Discharge Instructions Date of Service Nov 19, 2016. Admission Reason for Admission: chest pain, high blood pressure . Discharge Discharge Diagnosis / Problem: chest pain, high blood pressure - no sign of heart attack or blood clots Discharge Goals Goal(s): Improve disease control Activity Recommendations Activity Limitations: resume your previous activity . Instructions / Follow-Up Instructions / Follow-Up APPOINTMENTS: FAMILY MEDICINE 11/22/2016 3:50 PM Keshav Garcia MD INSTRUCTIONS: There was no sign of heart attack or blood clots. Your blood pressure was very high. It may have been causing your chest pain. New blood pressure medications: losartan / hydrochlorothiazide (Hyzaar) 100/12.5 daily replaced previous dose metoprolol tartrate (Lopressor) 25 mg twice a day Your cholesterol was a bit high. Increase atorvastatin (Lipitor) to 40 mg at bedtime. It is very important that you quit smoking. Continue Wellbutrin. Please discuss more with Dr. Garcia. Seek medical attention if you have: * chest pain or trouble breathing * any unanswered questions or concerns Call 911 if symptoms are severe. Call if you have any questions or problems. My cell # is [phone]. You can also reach a [facility] hospitalist on duty at [facility] 24 hours a day by calling [phone]. Please take good care of yourself. Nate Tejada . Current Hospital Diet Patient's current hospital diet: AHA Diet (Heart Healthy) Discharge Diet Recommended Diet: AHA Diet (Heart Healthy) Pending Studies Studies pending at discharge: no Laboratory Results Lipid Panel Test 11/19/16 05:16 Range/Units Triglycerides Level 211 H 0-150 mg/dl Cholesterol Level 197 0-200 mg/dl HDL Cholesterol 32 mg/dl Cholesterol/HDL Ratio 6.2 LDL Cholesterol, Calculated 123 mg/dl Medical Emergencies . Who to Call and When: Medical Emergencies: If at any time you feel your situation is an emergency, please call 911 immediately. . Non-Emergent Contact Non-Emergency issues call your: Primary Care Provider, Hospital Doctor . . "Provider Documentation" section prepared by Nate Tejada. . VTE Core Measure Inpt VTE Proph given/why not?: Enoxaparin (Lovenox)SQ (ordered, refused)
[2016-11-19 14:16] VITALS: BP 142/63; PULSE 74; TEMP 36.7; O2SAT 96
--- NOTE | 2016-11-19 20:31 | Discharge Summary ---
Discharge Summary Date of Service Nov 19, 2016. Discharge Summary Admission Date: Nov 18, 2016 at 11:44 Discharge Date: Nov 19, 2016 Discharge Disposition: Home Principal Diagnosis: chest pain, nonischemic hypertensive urgency . Secondary Diagnoses/Problems: Other Acute / New Problems: elevated D-dimer dyspnea on exertion pulmonary nodule, 4 mm lingular Chronic and Resolved Medical Problems: (1) Dyslipidemia Status: Chronic (2) GERD (gastroesophageal reflux disease) Status: Chronic (3) Hypertension Status: Chronic (4) Tobacco use disorder Status: Chronic Surgical Problems: (1) Status post lumbar laminectomy Status: Chronic . Procedures: cardiac monitoring IV meds CTA chest venous duplex lower extremities rest echo treadmill stress echo . Consultations: Cardiology with Dr. Tomas. . Pending Studies/Follow-Up: Please schedule outpatient PFT's re: smoker with dyspnea on exertion. Please schedule f/u CT chest in 12 months re: 4 mm lingular nodule. . Medication Reconciliation New Medications: Atorvastatin (Atorvastatin Calcium) 40 Mg Tab 40 MG PO HS, #30 TAB 5 Refills Losartan Potassium & Hydrochlo (Losartan Potassium/Hydroc) 1 Tab Tab 1 TAB PO DAILY, #30 TAB 5 Refills 100 / 12.5 mg tablet Metoprolol Tartrate (Lopressor) 25 Mg Tab 25 MG PO BID, #60 TAB 5 Refills Continued Medications: Bupropion Hcl (Wellbutrin Sr) 150 Mg Tab 150 MG PO BID, TAB Levothyroxine Sodium (Synthroid) 150 Mcg Tab 150 MCG PO QAM Omeprazole (Prilosec) 20 Mg Capcr 20 MG PO QAM, CAP Discontinued Medications: Atorvastatin (Lipitor) 20 Mg Tab 20 MG PO HS, TAB Hctz/Losartan (Hyzaar 12.5MG/50MG) Tab 1 TAB PO QAM, TAB Admission Information HPI (per Admitting provider): 56 YO male followed by Dr. Garcia. History of hypertension, dyslipidemia, smoking. Experienced transient left sided sharp chest pain 1 week ago while driving vehicle. Awakened from sleep this morning with similar pain, but more severe and more prolonged. CP described as sharp / stabbing left anterior chest pain. Intermittent. Nonradiating. Somewhat worse with deep inspiration. Associated with SOB, but no diaphoresis, nausea, vomiting. Did not take any analgesics or NTG at home. 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 Has dyspnea on exertion which he attributes to smoking. No chest pain / pressure with exertion. Mother has history of valvular heart disease, but apparently no significant ischemic heart disease. . Physical Exam (per Admitting): General Appearance: WD/WN, no apparent distress Head: normocephalic, atraumatic Eyes: PERRL, EOMI, sclerae normal, + pertinent finding (conjunctivae pink) ENT: hearing grossly normal, pharynx normal, + pertinent finding (upper dentures) Neck: supple, no adenopathy, thyroid normal, trachea midline Respiratory/Chest: no respiratory distress, no accessory muscle use, + wheezing (diffuse mild) Cardiovascular: regular rate, rhythm, no edema, no JVD, no murmur, + gallop/ S4, + pertinent finding (carotid pulses 2/2 bilat; radial pulses symmetric; right DP diminished, other pedal pulses intact; capillary refill toes 1-2 sec) Abdomen/GI: normal bowel sounds, non tender, soft, no organomegaly, no pulsatile mass Extremities/Musculoskelatal: normal inspection, no calf tenderness Neurologic/Psych: oracle ebs architect II-XII nml as tested (PERRL, EOMI, no facial palsy, no dysarthria), no motor/sensory deficits (motor strength upper and lower extremities intact), alert, normal mood/affect, normal reflexes (plantar reflexes downgoing), oriented x 3 Skin: normal color, warm/dry, no rash Lymphatic: no adenopathy (cervical) Hospital Course CHEST PAIN Presented to ED with sharp left-sided chest pain at rest; multiple risk factors for ischemic heart disease. EKG showed NSR, no acute changes. Cardiac markers negative x 3. Pulmonary embolism ruled out by CTA. No apparent aortic dissection per CT. Cardiology consulted. Echo showed mild LVH, normal LV wall motion and systolic function. No stress-induced ischemia per stress echo. CP felt to be secondary to hypertensive urgency. Management of hypertension, lipids, and smoking as discussed below. ELEVATED D-DIMER CTA chest negative for PE. Venous duplex lower extremities negative for DVT. HYPERTENSIVE URGENCY BP 207/111 upon presentation to ED. Received NTG ointment and IV hydralazine with improvement. Continue losartan / HCTZ. Increase daily losartan dose to 100 mg daily. Added metoprolol tartrate 25 mg BID. BP's improved- 116/72, 142/63 day of discharge. Discharge on Hyzaar 100/12.5 + metoprolol tartrate 25 BID. Follow and titrate Rx. DYSPNEA ON EXERTION Probably has obstructive lung disease. Outpatient PFT's recommended. PULMONARY NODULE CT chest demonstrated 4 mm lingular nodule. Repeat CT in 12 months recommended given smoking history. GERD Continue PPI. DYSLIPIDEMIA LDL-c 123. Increased atorvastatin to 40 mg HS. SMOKING Smokes 3 PPD. Continue bupropion. Smoking cessation counseling. VTE PROPHYLAXIS Low risk for VTE. SQ enoxaparin ordered, but pt refused. Ambulating. DISPOSITION Discharge to home. Family Medicine follow-up with Dr. Garcia. . Total time spent on discharge = This includes examination of the patient, discharge planning, medication reconciliation, and communication with other providers. Discharge Instructions Date of Service Nov 19, 2016. Admission Reason for Admission: chest pain, high blood pressure . Discharge Discharge Diagnosis / Problem: chest pain, high blood pressure - no sign of heart attack or blood clots Discharge Goals Goal(s): Improve disease control Activity Recommendations Activity Limitations: resume your previous activity . Instructions / Follow-Up Instructions / Follow-Up APPOINTMENTS: FAMILY MEDICINE 11/22/2016 3:50 PM Keshav Garcia MD INSTRUCTIONS: There was no sign of heart attack or blood clots. Your blood pressure was very high. It may have been causing your chest pain. New blood pressure medications: losartan / hydrochlorothiazide (Hyzaar) 100/12.5 daily replaced previous dose metoprolol tartrate (Lopressor) 25 mg twice a day Your cholesterol was a bit high. Increase atorvastatin (Lipitor) to 40 mg at bedtime. It is very important that you quit smoking. Continue Wellbutrin. Please discuss more with Dr. Garcia. Seek medical attention if you have: * chest pain or trouble breathing * any unanswered questions or concerns Call 911 if symptoms are severe. Call if you have any questions or problems. My cell # is [phone]. You can also reach a [facility] hospitalist on duty at [facility] 24 hours a day by calling [phone]. Please take good care of yourself. Nate Tejada . Current Hospital Diet Patient's current hospital diet: AHA Diet (Heart Healthy) Discharge Diet Recommended Diet: AHA Diet (Heart Healthy) Pending Studies Studies pending at discharge: no Laboratory Results Lipid Panel Test 11/19/16 05:16 Range/Units Triglycerides Level 211 H 0-150 mg/dl Cholesterol Level 197 0-200 mg/dl HDL Cholesterol 32 mg/dl Cholesterol/HDL Ratio 6.2 LDL Cholesterol, Calculated 123 mg/dl Medical Emergencies . Who to Call and When: Medical Emergencies: If at any time you feel your situation is an emergency, please call 911 immediately. . Non-Emergent Contact Non-Emergency issues call your: Primary Care Provider, Hospital Doctor . . "Provider Documentation" section prepared by Nate Tejada. . VTE Core Measure Inpt VTE Proph given/why not?: Enoxaparin (Lovenox)SQ (ordered, refused) . Additional Copies To Keshav Garcia M.D.(LOUISA)
== END 2016-11-19 15:23 | disposition home or self-care (01) ==
LOC: C.EDB 08:03 → C.2T 11:44 → ENRESERV 12:02
PROVIDERS: ADMIT Hospitalist; ATTEND Hospitalist
DX: R07.9 Chest pain, unspecified (principal); I10 Essential (primary) hypertension; E78.5 Hyperlipidemia, unspecified; K21.9 Gastro-esophageal reflux disease without esophagitis; F17.200 Nicotine dependence, unspecified, uncomplicated; Z98.890 Other specified postprocedural states; Z79.899 Other long term (current) drug therapy; Z80.1 Family history of malignant neoplasm of trachea, bronchus and lung; Z82.49 Family history of ischemic heart disease and other diseases of the circulatory system; Z83.3 Family history of diabetes mellitus